=== PATIENT | female | born 1965 | race Caucasian/White ===

== ENCOUNTER 2017-10-07 16:49 | Emergency (ER) | payer BC ==
[~2017-10-07] VITALS: Ht 165.1 cm; Wt 61.2 kg
[2017-10-07] MEDS ORDERED: IV NORMAL SALINE 1000ML BAG 1,000 ML IV ONE (17:30)
[2017-10-07 17:52] LABS: BASO % 0 % (0-3); EOS % 0 % (0-3); HEMATOCRIT 43.5 % (36.0-47.0); HEMOGLOBIN 14.4 g/dL (12.0-15.5); LYMPH # 0.8 x10^3/uL (1.0-4.8); LYMPH % 5 % (24-48); MEAN CORPUSCULAR HEMOGLOBIN 31 pg (25-35); MEAN CORPUSCULAR HGB CONC 33 g/dL (31-37); MEAN CORPUSCULAR VOLUME 94 fL (79-100); MONO # 0.8 x10^3/uL (0.0-1.1); MONO % 5 % (0-9); NEUT # 14.3 x10^3uL (1.8-7.7); NEUT % 90 % (31-73); PLATELET COUNT 284 x10^3/uL (140-400); RED BLOOD COUNT 4.61 x10^6/uL (3.50-5.40); WHITE BLOOD COUNT 15.9 x10^3/uL (4.0-11.0)
[2017-10-07 18:03] LABS: BILIRUBIN,URINE NEGATIVE (NEG); CLARITY,URINE CLEAR; COLOR,URINE YELLOW; NITRITE,URINE NEGATIVE (NEG); PH,URINE 8.5; PROTEIN,URINE NEGATIVE (NEG-TRACE); UROBILINOGEN,URINE 0.2 mg/dL (0.2 mg/dL)
[2017-10-07 18:14] LABS: AMPHETAMINE/METHAMPHETAMINE NEG (NEG); BARBITURATES NEG (NEG); BENZODIAZEPINES POS (NEG); CANNABINOIDS NEG (NEG); COCAINE NEG (NEG); METHADONE NEG (NEG); OPIATES NEG (NEG); PHENCYCLIDINE NEG (NEG)
[2017-10-07 18:18] LABS: BACTERIA,URINE 0 /HPF (0-FEW); RBC,URINE OCC /HPF (0-2); SQUAMOUS EPITHELIAL CELL,UR FEW /LPF; WBC,URINE OCC /HPF (0-4)
[2017-10-07 18:34] LABS: % BANDS 2 % (0-9); % LYMPHS 4 % (24-48); % MONOS 2 % (0-10); % SEGS 92 % (35-66); PLT ESTIMATE ADEQUATE (ADEQUATE)
[2017-10-07 18:54] LABS: CALCIUM 8.5 mg/dL (8.5-10.1); CREATININE 0.8 mg/dL (0.6-1.0); GFR 75.3; POTASSIUM 4.6 mmol/L (3.5-5.1)
[2017-10-07 18:58] LABS: ALBUMIN 3.6 g/dL (3.4-5.0); ALBUMIN/GLOBULIN RATIO 1.2 (1.0-1.7); TOTAL BILIRUBIN 0.2 mg/dL (0.2-1.0); TOTAL PROTEIN 6.6 g/dL (6.4-8.2)
[2017-10-07 19:15] VITALS: BP 161/72
--- NOTE | 2017-10-07 19:19 | PHYS DOC ---
Past Medical History Past Medical History: Anxiety, Depression, Other Additional Past Medical Histor: PTSD Past Surgical History: Cholecystectomy, Tubal ligation, Other Additional Past Surgical Histo: LEFT SHOULDER Alcohol Use: None Drug Use: None Adult General Chief Complaint Chief Complaint: DEHYDRATION HPI HPI Patient is a 52 year old female with a history of anxiety, depression, celiac disease, who presents today complaining of dehydration. Patient states she's been dehydrated since June. She states she has been seen at [facility], she states she was worked up for stroke area she states before she was seen she thought she was having a stroke. She states her workup was negative. Patient states she did not care about the neurologist who saw her at [facility]. Patient states Dr. aYo send her to the ED to be admitted for dehydration. Patient is very tearful. Patient states she lives in chronic pain. She states her whole body hurts constantly. She states she follows up with her pain doctor. Review of Systems Review of Systems Constitutional: Reports dehydration. Denies fever or chills [] Eyes: Denies change in visual acuity, redness, or eye pain [] HENT: Denies nasal congestion or sore throat [] Respiratory: Denies cough or shortness of breath [] Cardiovascular: No additional information not addressed in HPI [] GI: Denies abdominal pain, nausea, vomiting, bloody stools or diarrhea [] : Denies dysuria or hematuria [] Musculoskeletal: Denies back pain or joint pain [] Integument: Denies rash or skin lesions [] Neurologic: Denies headache, focal weakness or sensory changes [] All other systems were reviewed and found to be within normal limits, except as documented in this note. Current Medications Current Medications Current Medications Medications (Trade) Dose Ordered Sig/John Start Time Stop Time Status Last Admin Dose Admin Sodium Chloride 1,000 ml @ 1,000 mls/hr 1X ONCE 10/07/17 17:30 10/07/17 18:29 DC 10/07/17 17:46 1,000 MLS/HR Allergies Allergies Allergies Coded Allergies Type Severity Reaction Last Updated Verified tetracycline Allergy Mild RASH 10/07/17 Yes acetaminophen Allergy Unknown BODY PAIN 10/07/17 No propoxyphene Allergy Unknown HEART PALIPITATIONS 10/07/17 Yes Physical Exam Physical Exam Constitutional: Well developed, well nourished, no acute distress, non-toxic appearance. [] HENT: Normocephalic, atraumatic, bilateral external ears normal, oropharynx moist, no oral exudates, nose normal. [] Eyes: PERRLA, EOMI, conjunctiva normal, no discharge. [] Neck: Normal range of motion, no tenderness, supple, no stridor. [] Cardiovascular:Heart rate regular rhythm, no murmur [] Lungs & Thorax: Bilateral breath sounds clear to auscultation [] Abdomen: Bowel sounds normal, soft, no tenderness, no masses, no pulsatile masses. [] Skin: Warm, dry, no erythema, no rash. [] Back: No tenderness, no CVA tenderness. [] Extremities: No tenderness, no cyanosis, no clubbing, ROM intact, no edema. [] Neurologic: Alert and oriented X 3, normal motor function, normal sensory function, no focal deficits noted. [] Psychologic: Very tearful, has been crying since arrival to the ED. Current Patient Data Vital Signs Vital Signs Date Time Temp Pulse Resp B/P (MAP) Pulse Ox O2 Delivery O2 Flow Rate FiO2 10/07/17 17:15 98.6 94 16 153/72 (99) 95 Room Air 98.6 Lab Values Laboratory Tests Test 10/07/17 17:38 10/07/17 18:30 White Blood Count 15.9 x10^3/uL (4.0-11.0) H Red Blood Count 4.61 x10^6/uL (3.50-5.40) Hemoglobin 14.4 g/dL (12.0-15.5) Hematocrit 43.5 % (36.0-47.0) Mean Corpuscular Volume 94 fL (79-100) Mean Corpuscular Hemoglobin 31 pg (25-35) Mean Corpuscular Hemoglobin Concent 33 g/dL (31-37) Red Cell Distribution Width 13.0 % (11.5-14.5) Platelet Count 284 x10^3/uL (140-400) Neutrophils (%) (Auto) 90 % (31-73) H Lymphocytes (%) (Auto) 5 % (24-48) L Monocytes (%) (Auto) 5 % (0-9) Eosinophils (%) (Auto) 0 % (0-3) Basophils (%) (Auto) 0 % (0-3) Neutrophils # (Auto) 14.3 x10^3uL (1.8-7.7) H Lymphocytes # (Auto) 0.8 x10^3/uL (1.0-4.8) L Monocytes # (Auto) 0.8 x10^3/uL (0.0-1.1) Eosinophils # (Auto) 0.0 x10^3/uL (0.0-0.7) Basophils # (Auto) 0.0 x10^3/uL (0.0-0.2) Segmented Neutrophils % 92 % (35-66) H Band Neutrophils % 2 % (0-9) Lymphocytes % 4 % (24-48) L Monocytes % 2 % (0-10) Platelet Estimate Adequate (ADEQUATE) Urine Collection Type Unknown Urine Color Yellow Urine Clarity Clear Urine pH 8.5 Urine Specific [place] 1.015 Urine Protein Negative mg/dL (NEG-TRACE) Urine Glucose (UA) 100 mg/dL (NEG) Urine Ketones (Stick) Negative mg/dL (NEG) Urine Blood Negative (NEG) Urine Nitrite Negative (NEG) Urine Bilirubin Negative (NEG) Urine Urobilinogen Dipstick 0.2 mg/dL (0.2 mg/dL) Urine Leukocyte Esterase Negative (NEG) Urine RBC Occ /HPF (0-2) Urine WBC Occ /HPF (0-4) Urine Squamous Epithelial Cells Few /LPF Urine Bacteria 0 /HPF (0-FEW) Urine Mucus Slight /LPF Urine Opiates Screen Neg (NEG) Urine Methadone Screen Neg (NEG) Urine Barbiturates Neg (NEG) Urine Phencyclidine Screen Neg (NEG) Urine Amphetamine/Methamphetamine Neg (NEG) Urine Benzodiazepines Screen Pos (NEG) Urine Cocaine Screen Neg (NEG) Urine Cannabinoids Screen Neg (NEG) Urine Ethyl Alcohol Neg (NEG) Sodium Level 142 mmol/L (136-145) Potassium Level 4.6 mmol/L (3.5-5.1) Chloride Level 107 mmol/L (98-107) Carbon Dioxide Level 32 mmol/L (21-32) Anion Gap 3 (6-14) L Blood Urea Nitrogen 8 mg/dL (7-20) Creatinine 0.8 mg/dL (0.6-1.0) Estimated GFR (Cockcroft-Gault) 75.3 BUN/Creatinine Ratio 10 (6-20) Glucose Level 135 mg/dL (70-99) H Calcium Level 8.5 mg/dL (8.5-10.1) Total Bilirubin 0.2 mg/dL (0.2-1.0) Aspartate Amino Transferase (AST) 12 U/L (15-37) L Alanine Aminotransferase (ALT) 17 U/L (14-59) Alkaline Phosphatase 89 U/L (46-116) Total Protein 6.6 g/dL (6.4-8.2) Albumin 3.6 g/dL (3.4-5.0) Albumin/Globulin Ratio 1.2 (1.0-1.7) Lipase 140 U/L (73-393) Ethyl Alcohol Level < 10 mg/dL (0-10) Laboratory Tests 10/07/17 17:38 Laboratory Tests 10/07/17 18:30 EKG EKG [] Radiology/Procedures Radiology/Procedures [] Course & Med Decision Making Course & Med Decision Making Pertinent Labs and Imaging studies reviewed. (See chart for details) This is a 52-year-old female patient presenting to the ED today complaining of dehydration since June 2017. Patient has been seen at a different facility/ [facility] for the same complaint on her workup was negative. She states her GI doctor Maximilian send her to the ED to be admitted. Informed patient will get labs and give her IV fluids. She started complaining stating she has already had labs and IV fluids done multiple times and they never find anything wrong she wants to be admitted. I talked to DR. Armstrong who took report from Dr. Yao's office. He states patient was sent to the ED to be evaluated and be given IV fluids but not to be admitted unless there is any warranting reason. I gave patient and significant other results. Told patient there is essentially nothing acute in her workup. Informed her Dr. Yao's message for her to be worked up and sent home if nothing acute is found in her work up. Patient started screaming at me stating there is something wrong about emergency rooms dying is acute, she is yelling screaming removing her blood pressure cuff, wanting to remove IVs. Getting out of bed. Demanding to leave NOW. Informed RN will bring her paperwork as soon as she can. Dragon Disclaimer Dragon Disclaimer This electronic medical record was generated, in whole or in part, using a voice recognition dictation system. Departure Departure Impression: Primary Impression: Dehydration Disposition: HOME, SELF-CARE Condition: STABLE Referrals: UNKNOWN PCP NAME (PCP) DENEEN YAO MD follow up as soon as you can Patient Instructions: Dehydration, Adult Additional Instructions: You were evaluated in the emergency room for dehydration. Please continue following up with Dr. Yao and your primary care doctor as soon as you can. Continue pushing fluids. Scripts Ondansetron (ZOFRAN ODT) 4 Mg Tab.rapdis 1 TAB SL Q8HRS, #15 TAB Prov: SYBIL SOTO APRN 10/07/17 SYBIL SOTO APRN Oct 07, 2017 19:19
[2017-10-07] MEDS ORDERED: ONDA4TAB10 SL (19:35)
[2017-10-10] MEDS ORDERED: GABA-586 PO (12:01)
[2017-10-10] MEDS ORDERED: ALPR0.5T PO (12:01)
[2017-10-10] MEDS ORDERED: ZOLP10TA PO (12:01)
[2017-10-10] MEDS ORDERED: BACL10TA PO (12:01)
[2017-10-10] MEDS ORDERED: OXYC5TAB95 PO (12:01)
[2017-10-10] MEDS ORDERED: TRAZ-85 PO (12:01)
[2017-10-10] MEDS ORDERED: PRAZ1CAP2 PO (12:01)
[2017-10-10] MEDS ORDERED: PRED20TA PO (12:01)
== END 2017-10-07 19:47 | disposition home or self-care (01) ==
LOC: ER 16:49
DX: E86.0 Dehydration (principal); F43.10 Post-traumatic stress disorder, unspecified; Z90.49 Acquired absence of other specified parts of digestive tract; Z98.51 Tubal ligation status; Z88.1 Allergy status to other antibiotic agents; Z88.6 Allergy status to analgesic agent; Z88.8 Allergy status to other drugs, medicaments and biological substances
CPT/HCPCS: 36415; 80053; 80307; 81001; 83690; 85007; 85025; 96360; 99284; G0480; J7030; G0479

== ENCOUNTER → 2017-10-10 | Day surgery (SDC) | payer BC ==
[~2017-10-10] MED LIST: ALPR0.5T PO; BACL10TA PO; GABA-586 PO; IV RINGERS,LACTATED 1000ML 1,000 ML IV SCH; LIDOCAINE 1% PF 2 ML VIAL. ID PRN; MIDAZOLAM HCL/PF 2 MG/2 ML VIAL. IV PRN; ONDA4TAB10 SL; OXYC5TAB95 PO; PRAZ1CAP2 PO; PRED20TA PO; PROPOFOL 20 ML IV ONE; TRAZ-85 PO; ZOLP10TA PO; fentaNYL PF VIAL 100 MCG/2 ML VIAL IV PRN
[2017-10-10 13:45] VITALS: BP 146/70
--- NOTE | 2017-10-14 10:07 | PATHOLOGY ---
[facility] Accession Number: [id number] . 01 Material submitted: . PART A: DUODENUM BIOPSY PART B: GASTRIC ULCER BIOPSY . 01 Clinical history: . Abdominal pain . 02 Diagnosis: A. Duodenal biopsies: - No significant pathologic abnormalities. . B. Gastric biopsies, gastric ulcer: - Consistent with mild reactive gastropathy. [facility]/10/12/2017 . 02 Comment: Sections of the duodenal biopsies reveal multiple segments of duodenal and small intestinal mucosa. Where best oriented, the mucosa villi appear normal. There are no sprue-like changes or significant inflammatory changes. Sections of the gastric ulcer biopsies reveal segments of gastric mucosa showing superficial edema, congestion, and focal mild foveolar hyperplasia. There is no significant inflammation. A properly controlled immunoperoxidase stain for Helicobacter is negative for Helicobacter organisms. There is no evidence of malignancy. (JPM:[facility] 10/12/2017) . Special stain performed: Immunoperoxidase for Helicobacter on B1. . 02 Electronically signed: . Mahesh Marlow MD, Pathologist NPI- [id number] . 01 Gross description: . A. Received in formalin labeled "Kinsey Gusman, duodenum BX, rule out celiac," are 8 segments of ray soft tissue measuring 1.3 x 0.9 x 0.2 cm in aggregate dimensions and ranging from 0.3 to 0.4 cm in maximum dimension. The specimen is submitted entirely in cassette A1. . B. Received in formalin labeled "Kinsey Gusman, gastric ulcer BX," are 5 segments of ray soft tissue measuring 0.9 x 0.8 x 0.2 cm in aggregate dimensions and ranging from 0.3 to 0.4 cm in maximum dimension. The specimen is submitted entirely in cassette B1. ([facility]; 10/10/2017) TOB/TOB . 02 Pathologist provided ICD-10: K31.9, R10.9 . 02 CPT . 783383, [id number], [id number] Performed at: [address], [place] [id number] MD Juan José Jasso MD Phone: [phone] Performed at: [address] [id number] MD Mahesh Marlow MD Phone: [phone]
== END | disposition home or self-care (01) ==
LOC: SURG 11:25
PROVIDERS: ATTEND Internal Medicine Gastroenterology
DX: K25.9 Gastric ulcer, unspecified as acute or chronic, without hemorrhage or perforation (principal); K31.89 Other diseases of stomach and duodenum; F41.9 Anxiety disorder, unspecified; Z91.040 Latex allergy status; Z91.048 Other nonmedicinal substance allergy status; Z88.8 Allergy status to other drugs, medicaments and biological substances; Z88.6 Allergy status to analgesic agent; K90.0 Celiac disease; Z87.891 Personal history of nicotine dependence; Z79.899 Other long term (current) drug therapy; Z90.49 Acquired absence of other specified parts of digestive tract; Z98.890 Other specified postprocedural states; Z98.51 Tubal ligation status; Z82.49 Family history of ischemic heart disease and other diseases of the circulatory system
CPT/HCPCS: 43239; 82962; 88305; 88342; J2704